=== PATIENT | female | born 1970 | race Caucasian/White ===

== ENCOUNTER 2018-11-17 06:49 | Day surgery (SDC) | payer OTHER ==
[2018-11-17] MEDS ORDERED: SEVOFLURANE 15 MIN (07:00)
[2018-11-17] MEDS: SOD CHLORIDE 0.9% 1,000 ML IV (08:00)
[2018-11-17 10:16] LABS: ADD MAN DIFF? NO
[2018-11-17 10:23] LABS: BASOPHILS % 0.6 % (0.0-2.0); EOSINOPHILS # 0.1 10^3/ul (0.0-0.5); EOSINOPHILS % 2.4 % (0.0-7.0); HEMATOCRIT 41.2 % (37.0-47.0); HEMOGLOBIN 13.3 g/dl (12.0-16.0); LYMPHOCYTES # 2.1 10^3/ul (0.8-2.9); LYMPHOCYTES % 41.6 % (15.0-51.0); MEAN CORPUSCULAR HEMOGLOBIN 30.2 pg (29.0-33.0); MEAN CORPUSCULAR HGB CONC 32.3 g/dl (32.0-37.0); MEAN CORPUSCULAR VOLUME 93.4 fl (82.0-101.0); MEAN PLATELET VOLUME 12.3 fl (7.4-10.4); MONOCYTE # 0.4 10^3/ul (0.3-0.9); MONOCYTES % 8.2 % (0.0-11.0); NEUTROPHIL # 2.4 10^3/ul (1.6-7.5); PLATELET COUNT 137 10^3/UL (140-415); RED BLOOD COUNT 4.41 10^6/ul (4.20-5.40); RED CELL DISTRIBUTION WIDTH 12.3 % (11.5-14.5)
[2018-11-17] MEDS ORDERED: BUPIVACAINE 0.5% (SDV) 30 ML INJ (10:32)
[2018-11-17] MEDS: CEFAZOLIN 2 GM/50 ML (PMX) 50 ML IVPB (10:40)
[2018-11-17 10:41] LABS: INR 0.96; PROTIME 12.9 Sec (11.9-14.9)
[2018-11-17 10:42] LABS: ALANINE AMINOTRANSFERASE 35 IU/L (13-69); ALBUMIN 4.5 g/dl (3.3-4.9); ALBUMIN/GLOBULIN RATIO 1.25; ALKALINE PHOSPHATASE 88 IU/L (42-121); ANION GAP 4 (5-13); ASPARTATE AMINO TRANSFERASE 33 IU/L (15-46); BLOOD UREA NITROGEN 17 mg/dl (7-20); CALCIUM 9.7 mg/dl (8.4-10.2); CARBON DIOXIDE 30 mmol/L (21-31); CREATININE 0.82 mg/dl (0.44-1.00); Estimated GFR > 60 mL/min (>60); GLUCOSE 89 mg/dl (70-220); PARTIAL THROMBOPLASTIN TIME 33.2 Sec (23.0-35.0); POTASSIUM 4.4 mmol/L (3.5-5.1); TOTAL PROTEIN 8.1 g/dl (6.1-8.1)
[2018-11-17 10:45] LABS: CHLORIDE 111 mmol/L (97-110); SODIUM 145 mmol/L (135-144)
[2018-11-17 10:47] LABS: BILIRUBIN,INDIRECT 2.1 mg/dl (0-1.1); BILIRUBIN,TOTAL 2.1 mg/dl (0.2-1.3)
[2018-11-17] MEDS ORDERED: FENTAnyl 50 MCG/ML VIAL (10:47)
[2018-11-17] MEDS ORDERED: MIDAZOLAM 1 MG/ML 2 ML INJ (10:47)
[2018-11-17] MEDS: BUPIVACAINE 0.25% (MPF) 30 ML INJ (10:47)
[2018-11-17] MEDS ORDERED: LIDOCAINE 2% (SDV) 5 ML INJ (11:54)
[2018-11-17] MEDS ORDERED: PROPOFOL 20 ML (11:54)
[2018-11-17] MEDS ORDERED: ONDANSETRON 4 MG INJ ×2 (11:55→12:31)
[2018-11-17] MEDS ORDERED: CEFAZOLIN 1 GM INJ (11:55)
[2018-11-17] MEDS ORDERED: HYDROCODONE/APAP (5/325) TAB PO (12:00)
[2018-11-17] MEDS ORDERED: METOCLOPRAMIDE 10 MG INJ IV (12:30)
[2018-11-17] MEDS ORDERED: DIPHENHYDRAMINE 50 MG INJ IV (12:30)
[2018-11-17] MEDS ORDERED: MEPERIDINE 25 MG INJ IV (12:30)
[2018-11-17] MEDS ORDERED: FENTAnyl 50 MCG/ML VIAL IV (12:30)
[2018-11-17] MEDS ORDERED: HYDROmorphONE 1 MG/5 ML IV SYRINGE IV ×2 (12:30→12:31)
[2018-11-17] MEDS: ONDANSETRON 4 MG INJ IV (12:41)
[2018-11-17] MEDS: HYDROmorphONE 1 MG/5 ML IV SYRINGE IV (12:41)
[2018-11-18] MEDS ORDERED: INFLUENZA VIRUS VACCINE 0.5 ML (DISPENSING) IM* (09:00)
== END 2018-11-17 13:42 | disposition home or self-care (01) ==
LOC: SDS 06:49
DX: N60.92 Unspecified benign mammary dysplasia of left breast (principal); N64.1 Fat necrosis of breast; E66.9 Obesity, unspecified; Z68.29 Body mass index [BMI] 29.0-29.9, adult
CPT/HCPCS: 19301; 80053; 85025; 85610; 85730; 88307; 90686